=== PATIENT | female | born 1950 | race Two or more races ===

== ENCOUNTER 2022-10-04 12:52 | Emergency (ER) | payer MEDICARE, OTHER ==
[~2022-10-04] VITALS: Ht 149.9 cm; Wt 53.0 kg
[2022-10-04 15:31] VITALS: BP 93/70; PULSE 83; RESP 18; TEMP 99.2; O2SAT 94
[2022-10-04] MEDS ORDERED: HYDROcodone-ACET 10/325MG TAB PO ONE (17:15)
[2022-10-04] MEDS ORDERED: HYDR1TAB97 PO (17:17)
[2022-10-05] MEDS ORDERED: HYDR1TAB97 PO (14:10)
[2022-10-08] MEDS ORDERED: ALEN35TA18 PO ×2 (12:00)
== END 2022-10-04 17:34 | disposition home or self-care (01) ==
LOC: ER 12:52
DX: S52.514A Nondisplaced fracture of right radial styloid process, initial encounter for closed fracture (principal); S52.515A Nondisplaced fracture of left radial styloid process, initial encounter for closed fracture; W18.39XA Other fall on same level, initial encounter; Y93.89 Activity, other specified; Y92.89 Other specified places as the place of occurrence of the external cause; Y99.8 Other external cause status
CPT/HCPCS: 73100

== ENCOUNTER 2022-10-11 09:11 | Day surgery (SDC) | payer MEDICARE, OTHER ==
[2022-10-08 10:39] LABS: Basophils # (auto) 0.1 10 ^3/uL (0-0.2); Basophils % (auto) 0.9 % (0.0-2.0); Eosinophils # (auto) 0.1 10 ^3/uL (0-0.8); Eosinophils % (auto) 1.2 % (0.0-7.0); Hematocrit 42.3 % (36.0-46.0); Hemoglobin 14.9 g/dL (12.2-16.2); Lymphocytes # (auto) 1.7 10 ^3/uL (0.4-5.4); Lymphocytes % (auto) 23.1 % (10.0-50.0); Mean Corpuscular Hemoglobin 33.9 pg (28.0-32.0); Mean Corpuscular Hgb Conc. 35.1 g/dL (32.0-36.0); Mean Corpuscular Volume 96.5 fL (80.0-100.0); Monocytes # (auto) 0.3 10 ^3/uL (0-1.3); Monocytes % (auto) 4.7 % (0.0-12.0); Neutrophils # (auto) 5.1 10 ^3/uL (1.6-8.6); Neutrophils % (auto) 70.1 % (37.0-80.0); Red Blood Cells 4.38 10^6/uL (4.0-5.20); Red Cell Distribution Width 12.9 % (11.8-14.3); White Blood Cell 7.3 10^3/uL (4.4-10.8)
[2022-10-08 11:24] LABS: Albumin 3.8 g/dL (3.4-5.0); Calcium 8.8 mg/dL (8.5-10.1); Potassium 4.2 mmol/L (3.5-5.1)
[2022-10-08 11:26] LABS: BUN/Creatinine Ratio 21.7 (10.0-20.0)
[2022-10-08 11:29] LABS: Bilirubin, Total 0.7 mg/dL (0.2-1.0); Total Protein 7.5 g/dL (6.4-8.2)
[2022-10-08 11:44] LABS: INR 0.99 (0.9-1.15); Partial Thromboplastin Time 33.2 SEC (24.5-34.5); Prothrombin Time 10.4 sec (9.3-11.8)
[2022-10-08 12:18] LABS: Urine Bacteria NONE SEEN /hpf (None Seen); Urine Blood Negative /uL (Negative); Urine Clarity Clear (Clear); Urine Color Yellow (Yellow); Urine Protein, UAD Negative (Negative); Urine Specific Gravity 1.012 (1.001-1.035); Urine Urobilinogen Normal (Negative); Urine WBC <1 /hpf (0 - 5)
[~2022-10-11] VITALS: Ht 149.9 cm; Wt 52.6 kg
[~2022-10-11 09:11] MED LIST: ALEN35TA18 PO; HYDR1TAB97 PO
[2022-10-11] MEDS ORDERED: DexAMETHasone SOD PHOS 10MG/1ML VIAL INJ ONE (09:29)
[2022-10-11] MEDS ORDERED: ONDANSETRON HCL 4 MG/2 ML VIAL ONE (09:29)
[2022-10-11] MEDS ORDERED: fentaNYL CITRATE 100 MCG/2 ML VL ONE (09:29)
[2022-10-11] MEDS ORDERED: SODIUM CHLORIDE LOCK 10 ML ONE (09:29)
[2022-10-11] MEDS ORDERED: MEPERIDINE HCL (50 MG/ML) 1 ML VIAL ONE (09:29)
[2022-10-11] MEDS ORDERED: MIDAZOLAM HCL 2MG/2ML 2ml VIAL (1mg/ml) ONE (09:29)
[2022-10-11] MEDS ORDERED: PROPOFOL 10 MG/ML 20 ML IV ONE (09:29)
[2022-10-11] MEDS ORDERED: ceFAZolin 1GM/50ML 100 ML IV ONE (09:42)
[2022-10-11] MEDS ORDERED: BUPIVACAINE 0.25% INJ 50ML VIAL ONE (10:06)
[2022-10-11] MEDS ORDERED: LIDOCAINE 1% HCL (LOCAL ANESTH.) INJ 20ML MDV ONE (10:06)
[2022-10-11 11:19] VITALS: TEMP 97.2; O2SAT 97
[2022-10-11] MEDS ORDERED: METOCLOPRAMIDE HCL 5MG/ml INJ 2ml VIAL IV PRN (11:30)
[2022-10-11] MEDS ORDERED: MORPHINE SULFATE INJ 2 MG/ml SYRG IV PRN (11:30)
[2022-10-11] MEDS ORDERED: HYDROmorphone HCL 2 MG/ML VL/or syr IV PRN ×2 (11:30)
[2022-10-11 12:00] VITALS: BP 152/67; PULSE 68; RESP 13; O2SAT 94
== END 2022-10-11 12:06 | disposition home or self-care (01) ==
LOC: SUR 09:11
PROVIDERS: ATTEND Orthopaedic Surgery Adult Reconstructive Orthopaedic Surgery
DX: S52.591A Other fractures of lower end of right radius, initial encounter for closed fracture (principal); X58.XXXA Exposure to other specified factors, initial encounter; Y93.89 Activity, other specified; Y92.89 Other specified places as the place of occurrence of the external cause; Y99.8 Other external cause status; I10 Essential (primary) hypertension; M81.0 Age-related osteoporosis without current pathological fracture; Z79.899 Other long term (current) drug therapy; Z90.710 Acquired absence of both cervix and uterus; Z98.890 Other specified postprocedural states; Z79.891 Long term (current) use of opiate analgesic
CPT/HCPCS: 25609; 36415; 73100; 76000; 80053; 81001; 85025; 85610; 85730; C1713; J0690; J1100; J2001; J2175; J2250; J2405; J2704; J3010; J3490

== ENCOUNTER 2024-01-28 10:56 | Emergency (ER) | payer MEDICARE, OTHER ==
[~2024-01-28] VITALS: Ht 167.6 cm; Wt 56.8 kg
--- NOTE | 2024-01-28 11:58 | ED.PDOC ---
History of Present Illness(SKN HPI Comments A 73 YEAR OLD FEMALE PRESENTS TO THE ED WITH COMPLAINT OF CAT BITE OF RIGHT HAND. PATIENT STATES SHE WAS BITTEN BY HER CAT ON HER RIGHT HAND YESTERDAY NIGHT AND IS NOW EXPERIENCING MILD REDNESS AND SWELLING NEAR THE PUNCTURE WOUND SITE. PATIENT DENIES FEVER, CHILLS, SHORTNESS OF BREATH, CHEST PAIN, ABDOMINAL PAIN, NAUSEA, VOMITING, HEADACHE, OR OTHER COMPLAINTS. NO OTHER SYMPTOMS OR MODIFYING FACTORS AT THIS TIME. PATIENT IS ALERT, ORIENTED X 4, AND HAS STEADY GAIT. Chief Complaint: Animal Bite Time Seen by MD: 11:21 History of Present Illness: Nurses Notes, Medications, Allergies Allergies: Coded Allergies: NO KNOWN ALLERGIES (Unverified , 10/04/22) Home Meds Active Scripts Naproxen (Naproxen) 500 Mg Tab, 500 MG PO BID, #30 TAB Prov:DINESH PEARSON 01/28/24 Amoxicillin & Pot Clavulanate (Augmentin) 500 Mg Tab, 1 TAB PO BID, #20 TAB Prov:DINESH PEARSON 01/28/24 Hydrocodone-Acetaminophen (Hydrocodone/Acetaminophen 5-325 mg) 1 Tab Tab, 1 TAB PO BIDP PRN for 3 Days, #6 TAB 0 Refills Prov:DAVID SULLIVAN NP 10/05/22 Reported Medications Alendronate Sodium (Alendronate Sodium) 35 Mg Tab, 10 MG PO DAILY, TAB 10/08/22 Information Source: Patient Mode of Arrival: Ambulatory Severity: Moderate Timing: Days Duration: Since onset, Days Prehospital treatment: None Location: Hand (RIGHT HAND) Mechanism: Cat Occurence: Indoors Object: None Condition of Object: None Retained Foreign Body: No Wound Type: Puncture Immunization Status of Animal: NA Tetanus: >5 Years History of: None Associated Signs and Symptoms: Redness, Pain Past Medical History PAST MEDICAL HISTORY: Denies Surgical History: Denies all surgeries BUTTON SEWER HAND History: Denies all BUTTON SEWER HAND Hx Family History Family History: Reviewed,noncontributory to illness Social History Smoker: Non-Smoker Alcohol: Denies ETOH Use Drugs: Denies Drug Use Lives In: Home Constitutional: denies: chills, diaphoresis, fatigue, fever, malaise, sweats, weakness, others EENTM: denies: blurred vision, double vision, ear bleeding, ear discharge, ear drainage, ear pain, ear ringing, eye pain, eye redness, hearing loss, mouth pain, mouth swelling, nasal discharge, nose bleeding, nose congestion, nose pain, photophobia, tearing, throat pain, throat swelling, voice changes, others Respiratory: denies: cough, hemoptysis, orthopnea, SOB at rest, shortness of breath, SOB with excertion, stridor, wheezing, others Cardiovascular: denies: chest pain, dizzy spells, diaphoresis, Dyspnea on exertion, edema, irregular heart beat, left arm pain, lightheadedness, palpitations, PND, syncope, others Gastrointestinal: denies: abdomen distended, abdominal pain, blood streaked bowels, constipated, diarrhea, dysphagia, difficulty swallowing, hematemesis, melena, nausea, poor appetite, poor fluid intake, rectal bleeding, rectal pain, vomiting, others Genitourinary: denies: abnormal vagina bleeding, burning, dyspareunia, dysuria, flank pain, frequency, hematuria, incontinence, pain, , vagina discharge, urgency, others Neurological: denies: dizziness, fainting, headache, left sided numbness, left sided weakness, numbness, paresthesia, pre-existing deficit, right sided numbness, right sided weakness, seizure, speech problems, tingling, tremors, weakness, others Musculoskeletal: denies: back pain, gout, joint pain, joint swelling, muscle pain, muscle stiffness, neck pain, others Integumetry: reports: wounds (PUNCTURE WOUND OF RIGHT HAND WITH MILD REDNESS AND SWELLING); denies: bruises, change in color, change in hair/nails, dryness, laceration, lesions, lumps, rash, others Allergic/Immunocompromised: denies: Difficulty Healing, Frequent Infections, Hives, Itching, others Hematologic/Lymphatic: denies: anemia, blood clots, easy bleeding, easy bruising, swollen glands, others Endocrine: denies: excessive hunger, excessive sweating, excessive thirst, excessive urination, flushing, intolerance to cold, intolerance to heat, unexplained weight gain, unexplained weight loss, others Psychiatric: denies: anxiety, bipolar disorder, depression, hopeless, panic disorder, schizophrenia, sleepless, suicidal, others All Other Systems: Reviewed and Negative Physical Exam General Appearance: No Apparent Distress, Normal HEENT: Normal ENT Inspection, PERRL/EOMI, Pharynx Normal, TMs Normal Neck: Full Range of Motion, Non-Tender, Normal, Normal Inspection Respiratory: Chest Non-Tender, Lungs Clear, No Accessory Muscle Use, No Respiratory Distress, Normal Breath Sounds Cardiovascular: No Edema, No JVD, No Murmur, No Gallop, Normal Peripheral Pulses, Regular Rate/Rhythm Breast Exam: Deferred Gastrointestinal: No Organomegaly, Non Tender, No Pulsatile Mass, Normal Bowel Sounds, Soft Genitalia: Deferred Pelvic: Deferred Rectal: Deferred Extremities: No calf tenderness, Normal capillary refill, Normal range of motion, No pedal edema, Tender (WITH A TINY PUNCTURE WOUND ON RIGHT DORSAL HAND, MILD REDNESS AND SWELLING. 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 ) Peripheral Pulses: 2+ carotid (R), 2+ carotid (L), 2+ Radial (L), 2+ Brachial (R) Lymphatic: No Adenopathy Was a procedure done? Was a procedure done?: No Differential Diagnosis (INTG) Differential Diagnosis: Abrasion, Cellulitis, Contusion, Puncture Wound Differential Diagnosis: N/A Differential Diagnosis: N/A Abscess: N/A Differential Diagnosis: N/A X-Ray, Labs, Meds, VS Vital Signs Date Time Temp Pulse Resp B/P (MAP) Pulse Ox O2 Delivery O2 Flow Rate FiO2 01/28/24 12:08 84 16 96 Room Air 01/28/24 12:08 98.2 84 16 183/87 (119) 96 98.2 01/28/24 11:32 98.2 84 16 183/87 (119) 96 Current Medications Medications (Trade) Dose Ordered Sig/Karan Route Start Time Stop Time Status Last Admin Ceftriaxone Sodium (Rocephin) 1,000 mg ONCE ONCE IM 01/28/24 12:00 01/28/24 12:01 DC 01/28/24 12:01 Diphtheria/ Tetanus/Acell Pertussis (Boostrix T-Dap) 0.5 ml ONCE ONCE IM 01/28/24 12:00 01/28/24 12:01 DC 12/7/24 12:01 X-Ray, Labs, Meds, VS Comment EXTERNAL NOTES: NONE LABS ORDERED: NONE REVIEWED AND INTERPRETED RESULTS: NONE IMAGING ORDERED: NONE INDEPENDENT HISTORIANS: NONE TREATMENTS ORDERED: TETANUS 0.5 ML IM, ROCEPHIN 1 G IM PATIENT'S CASE AND RESULTS HAVE BEEN DISCUSSED WITH THE ED ATTENDING PHYSICIAN AND THEY AGREE WITH MY PLAN OF CARE. I HAVE INSTRUCTED THE PATIENT TO FOLLOW UP WITH THEIR PCP IN 1-2 DAYS. THE PATIENT FULLY UNDERSTANDS AND IS AWARE THEY NEED TO FOLLOW UP WITH THEIR PCP FOR FURTHER EVALUATION IF THEIR SYMPTOMS PERSIST. Time of 1ST Reevaluation: 12:40 Reevaluation 1ST: Improved Patient Education/Counseling: Diagnosis, Treatment, Need For Follow Up Family Education/Counseling: Diagnosis, Treatment, Need For Follow Up Medical Screening: No EMC Exist At This Time Departure 1 Departure Time of Disposition: 12:40 Impression: Primary Impression: Puncture wound of right hand Qualified Codes: S61.431A - Puncture wound without foreign body of right hand, initial encounter Additional Impression: Suspected soft tissue infection Disposition: 01 HOME / SELF CARE / HOMELESS Condition: Stable Additional Instructions: FOLLOW-UP WITH PCP IN 1 TO 2 DAYS. TAKE MEDICATIONS PRESCRIBED. RETURN TO ED FOR ANY NEW OR WORSENING SYMPTOMS. e-Prescriptions Naproxen (Naproxen) 500 Mg Tab 500 MG PO BID, #30 TAB Prov: DINESH PEARSON 01/28/24 Amoxicillin & Pot Clavulanate (Augmentin) 500 Mg Tab 1 TAB PO BID, #20 TAB Prov: DINESH PEARSON 01/28/24 Discharged With: Self Critical Care Note Critical Care Time?: No Stability Stability form required: No I personally scribed for DINESH PEARSON ([email or web address]) on 01/28/24 at 11:58. Electronically submitted by Talon Álvarez ([email or web address]). DINESH PEARSON Jan 28, 2024 11:58
[2024-01-28] MEDS: cefTRIAXone SOD 1,000 MG VL IM ONE (12:01)
[2024-01-28] MEDS: TETANUS-DIPTH-ACEL PERTUSSIS 0.5ML SYR Tdap IM ONE (12:01)
[2024-01-28 12:08] VITALS: BP 183/87; PULSE 84; RESP 16; TEMP 98.2; O2SAT 96
[2024-01-28] MEDS ORDERED: AMOX500T86 PO (12:25)
[2024-01-28] MEDS ORDERED: NAPR-746 PO (12:25)
== END 2024-01-28 12:31 | disposition home or self-care (01) ==
LOC: ER 10:56
DX: S61.431A Puncture wound without foreign body of right hand, initial encounter (principal); L08.89 Other specified local infections of the skin and subcutaneous tissue; Z79.899 Other long term (current) drug therapy; W55.01XA Bitten by cat, initial encounter; Y93.89 Activity, other specified; Y92.89 Other specified places as the place of occurrence of the external cause; Y99.8 Other external cause status
CPT/HCPCS: 90471; 90715; 96372; 99284; J0696